=== PATIENT | male | born 2000 | race Caucasian/White ===

== ENCOUNTER 2023-12-26 10:45 | Day surgery (SDC) | payer OTHER ==
[~2023-12-26] VITALS: Ht 180.3 cm; Wt 67.7 kg
[~2023-12-26 10:45] MED LIST: OMEP40CA5 PO; SERT50TA29 PO; THERTAB52 PO
[2023-12-26] MEDS: NS 250 ML IV ONE (11:23)
[2023-12-26 11:24] VITALS: TEMP 97.8
[2023-12-26] MEDS ORDERED: fentaNYL 100 MCG/2 ML INJECTION As Ordered ONE (12:31)
[2023-12-26] MEDS ORDERED: LIDOCAINE 2% 100MG/5ML SDV (FOR ANES.) As Ordered ONE (12:32)
[2023-12-26] MEDS ORDERED: propofoL 200 MG/20 ML VIAL As Ordered ONE (12:32)
[2023-12-26 13:09] VITALS: BP 134/80; O2SAT 99
== END 2023-12-26 13:17 | disposition home or self-care (01) ==
LOC: M OPP 10:45
PROVIDERS: ATTEND Internal Medicine Gastroenterology
DX: K21.9 Gastro-esophageal reflux disease without esophagitis (principal); R12 Heartburn; R07.89 Other chest pain; Z79.899 Other long term (current) drug therapy
CPT/HCPCS: 43235; J3010